=== PATIENT | male | born 1940 | race Caucasian/White ===

== ENCOUNTER 2019-08-16 15:27 | Observation (INO) | payer MEDICARE ==
[~2019-08-16] VITALS: Ht 185.4 cm; Wt 124.7 kg
[~2019-08-16 15:27] MED LIST: ASPIRIN81 M2 PO; ATENOLOL25 MG PO; JANUVIA PO; MAXZIDE1 EA PO; MUSCLE RELAXANT PO; TRIAMTERENE/HCTZ; Z.0.GLIMEPIRIDE2 MG PO; Z.0.PENICILLIN V P50 PO; [UNRECOGNIZED DRUG - CODE] PO; [UNRECOGNIZED DRUG - OTHER] PO
--- OUTSIDE RECORDS SUMMARY | 2019-08-16 15:35 | XMS REPORT | Summary of Care ---
Author Author [facility] Organization [facility] Address Unknown Phone Unavailable Care Team Providers Care Anime Designer Name Role Phone Rylan Zimmerman MD PCP Reason for Visit * Reason Comments Eye Problem Encounter Details Care Team Description Date Type Department Moni Newton MD [address] [place] [address] Eye Problem 07/24/2019 Office Visit [facility] Ophthalmology [address] [place] [address] Allergies No Known Allergiesdocumented as of this encounter (statuses as of 07/24/2019) Medications End Date Status Medication Sig Dispensed Refills Start Date Active erythromycin opth APPLY A SMALL 0 (ROMYCIN) ophthalmic AMOUNT TO THE 9 ointment LEFT EYELID BID Active tobramycin-dexamethasone 0 (TOBRADEX) 0.3-0.1 % 9 ophthalmic solution Active warfarin (COUMADIN) 7.5 TK 1 T PO QD 5 MG tablet 9 Active omeprazole (PRILOSEC) 40 TK 1 C PO QD 2 MG capsule 9 Active sulfamethoxazole-trimetho TK 1 T PO BID 1 prim (BACTRIM, SEPTRA) FOR 10 DAYS 9 400-80 MG per tablet THEN TK 1 T PO QD CONTINUOUSLY Active glimepiride (AMARYL) 2 MG TK 1 T PO QD 0 tablet WITH 9 BREAKFAST OR FIRST MAIN MEAL Active doxycycline (VIBRAMYCIN) TK 1 C PO BID 3 50 MG capsule 9 Active levothyroxine (SYNTHROID) TK 1 T PO QD 1 50 MCG tablet 9 Active torsemide (DEMADEX) 20 MG TK 1 T PO QD 0 tablet 9 Active lisinopril (PRINIVIL, Take 10 mg by 0 ZESTRIL) 10 MG tablet mouth daily. Active ezetimibe (ZETIA) 10 MG TK 1 T PO QD 1 tablet 9 Active Levocetirizine Take by 0 Dihydrochloride (XYZAL mouth. OR) Active Cholecalciferol (VITAMIN Take by 0 D3) 3000 units TABS mouth. Active Calcium Take by 0 Carb-Cholecalciferol mouth. (CALCIUM 600 + D OR) Active cycloSPORINE (RESTASIS) Place 1 Drop 60 Each 6 0.05 % ophthalmic into both 9 emulsion eyes two times daily. Active Eyelid Cleansers Apply 1 [place] 1 Bottle 6 (AVENOVA) 0.01 % SOLN topically two 9 times daily. documented as of this encounter (statuses as of 07/24/2019) Active Problems Problem Noted Date Corneal scar and opacity 07/24/2019 Dry eye syndrome of both eyes 07/24/2019 documented as of this encounter (statuses as of 07/24/2019) Social History Date Tobacco Use Types Packs/Day Years Used Never Smoker Smokeless Tobacco: Never Used Drinks/Week oz/Week Comments Alcohol Use Not Currently Alcohol Habits Answer Date Recorded How often do you have a drink containing alcohol? Never 07/24/2019 How many drinks containing alcohol do you have on Not asked a typical day when you are drinking? How often do you have six or more drinks on one Not asked occasion? Sex Assigned at Date Recorded Not on file Industry Job Start Date Occupation Not on file Not on file Not on file Travel End Travel History Travel Start No recent travel history available. documented as of this encounter Last Filed Vital Signs Not on filedocumented in this encounter Patient Instructions * Patient Instructions* Moni Newton MD - 07/24/2019 9:50 AM CDT Avenova [place] Tobradex twice a day for 1 week then once a day Restasis twice a day Restasis Patient Instructions 1. Restasis is a food and drug administration approved medication that treats th e cause of dry eyes, not just the symptoms 2. You may notice that Restasis is slightly cloudy, but it will not blur your vi efraín 3. You may experience burning from Restasis after you place it in your eye. Abou t 17% of study patients had very mild burning. The burning usually lasts a few min utes and most often goes away within a couple of weeks. 4. A small percentage of patients develop burning three to six weeks after start ing Restasis because the eye is returning to a more healthy and normal state and is regaining sensitivity. This burning will also go away after a couple of weeks and not develop again. 5. To help with the burning sensation: * Place Restasis in the refrigerator. This will not hinder the efficacy of the medication. * Place a drop of either Lotemax (if prescribed by your physician) or an artifi sammy tear approximately 2 minutes before the Restasis drop. Dosing 1. The package insert suggests using one vial per dose. Because there are 8 drop s per vial, we feel it is more cost effective to use one vial until it runs out. Once you open the vial in the morning, be careful not to touch or contaminate the top . The package insert recommends using the drop twice a day; however, your physician may prescribe the drug to be used three to four times a day. 2. Place your vial in a small glass or shotglass and stand upright in the refrig erator. 3. It usually takes at least two weeks to see an effect and it may take up to si x months to derive the maximum therapeutic benefit, so you must be patient. 4. It is important that you continue to use restasis long-term or your dry eye c ondition will return. documented in this encounter Progress Notes * Moni Newton MD - 07/24/2019 9:50 AM CDT STUDY/STUDIES: Ralph: IA from dry eye ASSESSMENT/PLAN 1. Corneal scar and opacity 2. Dry eye syndrome of both eyes - 1) Dry eye OS > OD - treated with tears and steroids - IOP high! Needs to be off steroids - taper Tobradex - plan restasis and avenova - would benefit in the future from lipoflow or other treatment ATTESTATIONS: I have reviewed the PMH, SH, FHX, ROS, MEDS, ALLERGIES and TECH NOTE, and have u pdated the computerized patient record appropriately. The risks, benefits, and alternatives of treatment were discussed with the patie nt (& family, if present). All questions regarding diagnosis and treatment were answered to the patient's satisfaction. documented in this encounter Plan of Treatment Health Maintenance Due Date Last Done Comments MEDICARE AWV 1940 TETANUS SHOT (ADULT) 1955 FALL SCREEN 01/26/2004 PNEUMOVAX >=65 (PPSV23) 01/26/2004 PREVNAR >=65 (PCV13) 01/26/2004 FLU VACCINE > 6 MONTHS 05/16/2019 documented as of this encounter Procedures Comments Procedure Name Priority Date/Time Associated Diagnosis CORNEAL TOPOGRAPHY - OU - Routine 07/24/2019 Corneal scar and opacity BOTH EYES 11:50 AM CDT documented in this encounter Results * CORNEAL TOPOGRAPHY - OU - BOTH EYES (07/24/2019 11:50 AM CDT) Specimen Narrative Performed At Right Eye Findings include irregular astigmatism. Left Eye Findings include irregular astigmatism. Notes Dry eye OS > OD documented in this encounter Visit Diagnoses Diagnosis Corneal scar and opacity - Primary Corneal opacity, unspecified Dry eye syndrome of both eyes documented in this encounter Insurance Type Payer Benefit Subscriber ID Effective Phone Address Plan / Dates Group Medicare [employer] MEDICARE xxxxxxxx 2014-P [address] PPO - resent [id number] [place] [address] documented as of this encounter
--- OUTSIDE RECORDS SUMMARY | 2019-08-16 15:35 | XMS REPORT ---
[facility] Address Unknown Phone Unavailable Care Team Providers Care Sales Department Supervisor Name Role Phone Sarbjit DANIELSON Unavailable Unavailable Payers Payer Name Policy Type Policy Number Effective Date Expiration Date Problems This patient has no known problems. Allergies, Adverse Reactions, Alerts Allergy Name Allergy Type Status Severity Reaction(s) Onset Date Inactive Date Treating Clinician Comments No Known Contrast Allergies DA Active U 2006-09-15 00:00:00 No Known Drug Allergies DA Active U 2006-09-15 00:00:00 No Known Food Allergies DA Active U 2006-09-15 00:00:00 No Known Other Allergies DA Active U 2006-09-15 00:00:00 No Known Drug Intolerances DA Active U 2002-11-19 00:00:00 Medications This patient has no known medications. Results Test Description Test Time Test Comments Text Results Atomic Results Result Comments CHEST 2 VIEWS [place] [address] Patient Name: GERRI GREGORIO MR #: [id number] : 1940 Age/Sex: 77/M Req #: [id number] Adm Physician: Ordered by: BRYAN ROOT Report #: [id number] Location: ER Room/Bed: Procedure: [id number] DX/CHEST 2 VIEWS Exam Date: 07/11/17 Exam Time: 1640 REPORT STATUS: Signed PROCEDURE: Frontal and lateral views of the chest. COMPARISON: Patients [facility], DX, CHEST SINGLE (PORTABLE), 07/02/2013, 7:00. INDICATIONS: COUGH, ANEMIA FINDINGS: Lines/tubes: None. Lungs: The lungs are well inflated. Stable left lower lung 6-7 mm calcified granuloma. There is no evidence of pneumonia or pulmonary edema. Pleura: There is no pleural effusion or pneumothorax. Heart and mediastinum: Cardiac silhouette is unremarkable. Pulmonary vasculature is normal. Tortuous aorta. Bones: No acute bony abnormality. IMPRESSION: 1. No acute cardiopulmonary abnormalities. Fei Avalos M.D. Dictated by: Fei Avalos M.D. on 07/11/2017 at 17:06 Electronically approved by: Fei Avalos M.D. on 07/11/2017 at 17:06 Dictated By: FEI AVALOS MD [id number] Transcribed By: TEOFILO on 07/11/17 1706 COPY TO: BRYAN ROOT
--- OUTSIDE RECORDS SUMMARY | 2019-08-16 15:35 | XMS REPORT | Summary of Care ---
Author Author [facility] Organization [facility] Address Unknown Phone Unavailable Care Team Providers Care Electrical Project Engineer Name Role Phone Rylan Zimmerman MD PCP Reason for Visit * Reason Comments Blurred Vision Encounter Details Care Team Description Date Type Department Moni Newton MD [address] [place] [address] Blurred Vision 08/16/2019 Office Visit [facility] Ophthalmology [address] [place] [address] Allergies No Known Allergiesdocumented as of this encounter (statuses as of 08/16/2019) Medications End Date Status Medication Sig Dispensed [...] times daily. Active Eyelid Cleansers Apply 1 [place] 1 Bottle 6 (AVENOVA) 0.01 % SOLN topically two 9 times daily. documented as of this encounter (statuses as of 08/16/2019) Active Problems Problem Noted Date Corneal scar and opacity 07/24/2019 Dry eye syndrome of both eyes 07/24/2019 documented as of this encounter (statuses as of 08/16/2019) Social History Date Tobacco Use Types Packs/Day [...] Signs Not on filedocumented in this encounter Progress Notes * Moni Newton MD - 08/16/2019 1:30 PM CDT STUDY/STUDIES: Ralph: IA from dry eye ASSESSMENT/PLAN 1. Subconjunctival hematoma, bilateral - 1) Spont ecchymosis OD with bilateral YING - on Doxy with Warfarin - discussed with PCP: plan to check INR today - hold Doxy for now 2) Dry eye OS > OD - treated with tears and steroids - IOP better off steroids - CPM restasis and avenova - would benefit in [...] MONTHS 05/16/2019 documented as of this encounter Results Not on filedocumented in this encounter Visit Diagnoses Diagnosis Subconjunctival hematoma, bilateral - Primary documented in this encounter Insurance Type Payer Benefit Subscriber ID Effective Phone Address Plan / Dates Group Medicare [employer] MEDICARE xxxxxxxx 2014-P [address] PPO - resent [id number] [place] [address] documented as of this encounter
[2019-08-16] MEDS ORDERED: PHYTONADIONE 10 MG/ML AMP SQ ONE (15:45)
[2019-08-16 16:19] LABS: INR 6.31; PROTHROMBIN TIME 56.5 seconds (11.9-14.5)
--- NOTE | 2019-08-16 16:20 | NUR ---
dr patterson informed of critical pt/inr
[2019-08-16] MEDS ORDERED: RESTASIS1 EACH OU (16:53)
[2019-08-16] MEDS ORDERED: WARFARIN SODIU7.5 MG PO (16:53)
[2019-08-16] MEDS ORDERED: TOBRADEX ST EYE5 ML OU (16:53)
[2019-08-16 22:00] VITALS: BP 109/71
[2019-08-16 22:32] VITALS: BP 109/71
[2019-08-17] VITALS (7 sets, daily range): BP systolic 97–119; BP diastolic 57–74
--- NOTE | 2019-08-17 02:03 | History and Physical ---
HISTORY OF PRESENTING ILLNESS: The patient is an 79-year-old gentleman, who woke up in the morning with both eyes being bloody and the patient went to his eye doctor and was told to come back to his PCP to do PT and INR, which was found to be elevated at 8 and the patient was sent to the emergency room for further evaluation. PAST MEDICAL HISTORY: History of diabetes mellitus, history of chronic renal failure, history of hyperlipidemia, history of hypertension, history of benign prostatic hypertrophy, history of diabetes mellitus, history of chronic kidney disease, history of DVT in the left leg, and also hypothyroidism. The patient's additional history includes diabetes with renal manifestations. ALLERGIES: NKDA. PAST SURGICAL HISTORY: History of tonsillectomy, adenoidectomy, appendectomy, inguinal hernia repair, and right knee surgery. FAMILY HISTORY: Father is to emphysema. Family history unknown. Brother, hypertension. SOCIAL HISTORY: No EtOH and no IV drug abuse. MEDICATIONS: The patient takes include warfarin sodium 7.5 mg. The patient takes lisinopril 10 mg daily, glimepiride 2 mg daily, Synthroid 50 mg daily, Zetia 10 mg daily, and torsemide 20 mg daily. The patient also takes Januvia and a muscle relaxant. The patient also takes Restasis for dry eye syndrome. PHYSICAL EXAMINATION: VITAL SIGNS: Temperature is 98.5, pulse of 83, respirations of 20, blood pressure is 107/63, and pulse oximetry of 99%. HEENT: The patient has bilateral eye with raccoon eye with ecchymosis around the eye on bilateral orbits. CVS: S1 and S2 normal. Regular rate and rhythm. ABDOMEN: Nontender and nondistended. EXTREMITIES: No clubbing, no cyanosis, and no edema. LABORATORY VALUES: The patient's PT/INR . Rest of the labs are pending at this time. ASSESSMENT: Mr. Jurgen Cooper with a hypercoagulable state secondary to warfarin poisoning or overdose. PLAN: Vitamin K has been given. We will give FFP if needed. The patient's CT scan of the eye is pending at this time. We will continue to monitor the patient and continue checking his PT/INR. Further recommendation per clinical course. Additional comorbidities includes DVT, diabetes mellitus, hypothyroidism, hypertension, hyperlipidemia, and reflux esophagitis. For further information, look into the chart. MD SUBHA Ojeda/MODL /[id number]
[2019-08-17 05:25] LABS: BASOPHILS % 0.7 % (0.0-1.0); EOSINOPHILS # (AUTO) 0.2 (0.0-0.4); EOSINOPHILS % 3.2 % (0.0-6.0); HEMATOCRIT 35.8 % (38.2-49.6); HEMOGLOBIN 12.2 g/dL (14.0-18.0); LYMPHOCYTES # (AUTO) 1.8 (1.0-3.2); LYMPHOCYTES % 32.7 % (18.0-39.1); MEAN CORPUSCULAR HEMOGLOBIN 30.3 pg (28-32); MEAN CORPUSCULAR HGB CONC 34.1 g/dL (31-35); MEAN CORPUSCULAR VOLUME 88.8 fL (81-99); MONOCYTES # (AUTO) 0.7 (0.2-0.8); MONOCYTES % 13.2 % (4.4-11.3); NEUTROPHILS # (AUTO) 2.8 (2.1-6.9); NEUTROPHILS % 49.7 % (38.7-80.0); PLATELET COUNT 139 x10e3/uL (140-360); RED BLOOD COUNT 4.03 x10e6/uL (4.3-5.7); RED CELL DISTRIBUTION WIDTH 12.6 % (11.7-14.4)
[2019-08-17 05:35] LABS: PARTIAL THROMBOPLASTIN TIME 69.4 seconds (23.8-35.5)
[2019-08-17 05:42] LABS: ANION GAP 11.8 mmol/L (8-16); CALCIUM 9.4 mg/dL (8.4-10.2); CREATININE, SERUM 1.78 mg/dL (0.72-1.25); INR 5.95; POTASSIUM 3.8 mmol/L (3.5-5.1)
[2019-08-17] MEDS ORDERED: LEVOTHYROXINE50 MCG PO (06:03)
[2019-08-17] MEDS ORDERED: OMEPRAZOLE40 MG PO (06:05)
[2019-08-17] MEDS ORDERED: BACTRIM 400-801 EACH PO (06:06)
[2019-08-17] MEDS ORDERED: LISINOPRIL10 MG PO (06:07)
[2019-08-17] MEDS ORDERED: ZETIA10 MG PO (06:09)
[2019-08-17] MEDS ORDERED: TORSEMIDE10 MG PO (06:10)
[2019-08-17] MEDS ORDERED: DOXYCYCLINE HYC50 MG PO (06:13)
[2019-08-17] MEDS ORDERED: XYZAL5 MG (06:21)
[2019-08-17] MEDS ORDERED: CALCIUM600 MG (06:23)
[2019-08-17] MEDS ORDERED: VITAMIN D400 UNIT PO (06:23)
[2019-08-17] MEDS ORDERED: PHYTONADIONE 10 MG/ML AMP SQ ONE (07:15)
[2019-08-17] MEDS ORDERED: LISINOPRIL 10 MG TAB PO SCH (09:00)
[2019-08-17] MEDS ORDERED: LEVOTHYROXINE SODIUM 50 MCG TAB PO SCH (09:00)
[2019-08-17] MEDS ORDERED: EZETIMIBE 10 MG TAB PO SCH (09:00)
[2019-08-17] MEDS ORDERED: GLIMEPIRIDE 2 MG TAB PO SCH (09:00)
[2019-08-17] MEDS ORDERED: TORSEMIDE 10 MG TAB PO SCH (09:00)
[2019-08-17] MEDS ORDERED: PANTOPRAZOLE SOD 40 MG TABEC PO SCH (09:00)
--- NOTE | 2019-08-17 10:09 | Progress Note ---
DATE: SUBJECTIVE: The patient came in with Coumadin toxicity. The patient is admitted to the hospital, was given vitamin K, however, his INR is still at 5.95, yesterday was 6.31. The patient is currently asymptomatic except for bleeds in subconjunctival and also hemorrhages and ecchymosis in the eye. The patient is feeling better. Eyesight is distorted, but that is secondary to cataract operation the patient had. Currently, no chest pain. No shortness of breath. No nausea. No vomiting. No diarrhea. OBJECTIVE: VITAL SIGNS: Temperature is 96.7, pulse of 75, respirations of 16, blood pressure is 108/59, pulse oximetry of 98%. HEENT: Normocephalic, atraumatic. The patient has subconjunctival hemorrhages and also orbital ecchymosis. CVS: S1 and S2 normal. Regular rate and rhythm. ABDOMEN: Nontender, nondistended. EXTREMITIES: Positive for edema. LABORATORY VALUES: White count is 5.6, hemoglobin of 12.2, hematocrit 35.8. Chemistries; sodium 131, BUN of 39, creatinine of 1.78, glucose of 148. ASSESSMENT: An 79-year-old gentleman with: 1. Coumadin toxicity. Plan would be to give another 20 mg of vitamin K to reduce INR. 2. Acute kidney injury with chronic kidney disease. We will continue monitoring. The patient's creatinine is 37%. 3. History of deep venous thrombosis. The patient will need to resume warfarin once it is down. 4. The patient's other comorbid birds include hyperlipidemia, diabetes mellitus, hypothyroidism, hypertension. Continue all current medications. Further recommendation per clinical course. We will continue to monitor the patient. MD ISAIAH OjedaJ/MODL /[id number]
[2019-08-17 12:56] LABS: INR 4.16
[2019-08-17] MEDS ORDERED: LORATADINE 10 MG TAB PO SCH (17:00)
[2019-08-17 18:12] LABS: INR 2.64; PROTHROMBIN TIME 28.9 seconds (11.9-14.5)
--- NOTE | 2019-08-17 18:45 | NUR ---
patient alert and oriented, discharge instructions given at this time, patient and verbalized understanding. IV discontinued, catheter in tact and pressure dressing applied. patient to be wheeled out to personal auto for to drive home.
== END 2019-08-17 18:57 | disposition home or self-care (01) ==
LOC: ER 15:27 → ERHOLD 16:26 → IMCU 21:52
PROVIDERS: ADMIT Family Medicine; ATTEND Family Medicine
DX: D68.69 Other thrombophilia (principal); T45.515A Adverse effect of anticoagulants, initial encounter; E11.22 Type 2 diabetes mellitus with diabetic chronic kidney disease; I12.9 Hypertensive chronic kidney disease with stage 1 through stage 4 chronic kidney disease, or unspecified chronic kidney disease; N18.9 Chronic kidney disease, unspecified; N17.9 Acute kidney failure, unspecified; E03.9 Hypothyroidism, unspecified; N40.0 Benign prostatic hyperplasia without lower urinary tract symptoms; Z86.718 Personal history of other venous thrombosis and embolism; Z79.01 Long term (current) use of anticoagulants; E78.5 Hyperlipidemia, unspecified
CPT/HCPCS: 36415 ×2; 80048; 82948; 85025; 85610 ×2; 85730; 99284; G0378 ×2; J3430 ×2; S0164

== ENCOUNTER → 2021-05-04 | Outpatient (CLI) | payer MEDICARE ==
[~2021-05-04] MED LIST changes: +BACTRIM 400-801 EACH PO; +CALCIUM600 MG; +DOXYCYCLINE HYC50 MG PO; +LEVOTHYROXINE50 MCG PO; +LISINOPRIL10 MG PO; +OMEPRAZOLE40 MG PO; +RESTASIS1 EACH OU; +TOBRADEX ST EYE5 ML OU; +TORSEMIDE10 MG PO; +VITAMIN D400 UNIT PO; +WARFARIN SODIU7.5 MG PO; +XYZAL5 MG; +ZETIA10 MG PO
[2021-05-04 09:26] LABS: CREATININE, SERUM 1.64 mg/dL (0.72-1.25)
== END ==
LOC: MRI 08:40
PROVIDERS: ATTEND Family Medicine
DX: E80.6 Other disorders of bilirubin metabolism (principal); K85.90 Acute pancreatitis without necrosis or infection, unspecified
CPT/HCPCS: 36415; 74181; 82565; 84520

== ENCOUNTER → 2022-05-20 | Outpatient (CLI) | payer MEDICARE | LOC: US 12:54 | PROVIDERS: ATTEND Family Medicine | DX: N50.89 Other specified disorders of the male genital organs (principal) | CPT/HCPCS: 76870; 93976 ==

== ENCOUNTER 2024-08-12 10:51 | Inpatient (IN) | payer MEDICARE ==
[~2024-08-12] VITALS: Ht 185.4 cm; Wt 124.7 kg
[~2024-08-12 10:51] MED LIST changes: +METFORMIN HCL850 MG PO; +PLAVIX75 MG PO
[2024-08-12] MEDS ORDERED: SODIUM CHLORIDE FLUSH 10 ML SYR INJ PRN (11:15)
[2024-08-12 12:15] LABS: BASOPHILS % 0.4 % (0.0-1.0); EOSINOPHILS # (AUTO) 0.1 (0.0-0.4); EOSINOPHILS % 1.8 % (0.0-6.0); HEMATOCRIT 38.9 % (38.2-49.6); HEMOGLOBIN 12.4 g/dL (14.0-18.0); LYMPHOCYTES # (AUTO) 1.2 (1.0-3.2); LYMPHOCYTES % 16.8 % (18.0-39.1); MEAN CORPUSCULAR HEMOGLOBIN 29.9 pg (28-32); MEAN CORPUSCULAR HGB CONC 31.9 g/dL (31-35); MEAN CORPUSCULAR VOLUME 93.7 fL (81-99); MONOCYTES # (AUTO) 1.2 (0.2-0.8); MONOCYTES % 16.5 % (4.4-11.3); NEUTROPHILS # (AUTO) 4.5 (2.1-6.9); NEUTROPHILS % 64.2 % (38.7-80.0); PLATELET COUNT 104 x10e3/uL (140-360); RED BLOOD COUNT 4.15 x10e6/uL (4.3-5.7); RED CELL DISTRIBUTION WIDTH 14.6 % (11.7-14.4); WHITE BLOOD COUNT 7.04 x10e3/uL (4.8-10.8)
[2024-08-12 12:30] LABS: ALANINE AMINOTRANSFERASE 16 IU/L (0-55); ALBUMIN 3.3 g/dL (3.5-5.0); ALBUMIN/GLOBULIN RATIO 0.9 (0.8-2.0); ALKALINE PHOSPHATASE 157 IU/L (40-150); ANION GAP 14.1 mmol/L (8-16); BILIRUBIN,TOTAL 1.2 mg/dL (0.2-1.2); BLOOD UREA NITROGEN 28 mg/dL (7-26); BUN/CREATININE RATIO 18 (6-25); CALCIUM 9.6 mg/dL (8.4-10.2); CARBON DIOXIDE 22 mmol/L (22-29); CHLORIDE 107 mmol/L (98-107); CREATINE KINASE 38 IU/L (30-200); CREATININE, SERUM 1.58 mg/dL (0.72-1.25); EST GLOMERULAR FILTRATION RATE 43 ML/MIN (>=60); GLUCOSE 149 mg/dL (74-118); POTASSIUM 4.1 mmol/L (3.5-5.1); SODIUM 139 mmol/L (136-145); TOTAL PROTEIN 6.9 g/dL (6.5-8.1)
[2024-08-12 12:41] LABS: TROPONIN I < 0.05 ng/mL (0.0-0.40)
[2024-08-12 16:52] VITALS: TEMP 98.8
[2024-08-12] MEDS ORDERED: ONDANSETRON HCL INJ 2MG/ML 2ML 2 MG/ML VIAL ONE (17:08)
[2024-08-12] MEDS: Morphine 4mg INJECTION 4 MG/ML INJ IV PRN (17:10)
[2024-08-12] MEDS ORDERED: DIPHENHYDRAMINE HCL 25 MG CAP PO STA (17:46)
[2024-08-12] MEDS ORDERED: DIPHENHYDRAMINE HCL INJ 50 MG/ML VIAL ONE (17:52)
[2024-08-12] MEDS: PREDNISONE 20 MG TAB PO STA (17:56)
[2024-08-12] MEDS: ONDANSETRON HCL INJ 2MG/ML 2ML 2 MG/ML VIAL IV STA (17:56)
[2024-08-12] MEDS: DIPHENHYDRAMINE HCL INJ 50 MG/ML VIAL IV ONE (18:10)
[2024-08-12 19:06] VITALS: PULSE 86; RESP 18
[2024-08-12] MEDS ORDERED: DEXTROSE 50% SYRINGE 50 ML IV PRN (19:15)
[2024-08-12 20:00] VITALS: BP 125/65; PULSE 81; RESP 18; TEMP 98.3; O2SAT 100
[2024-08-12] MEDS: INSULIN LISPRO 100 UNIT/1 ML 3ML VIAL SQ SCH (22:42)
[2024-08-12] MEDS: FUROSEMIDE INJ 10 MG/ML 4 ML VIAL IV SCH (22:47)
[2024-08-13] VITALS: BP 117/66; PULSE 75; RESP 18; TEMP 97.6; O2SAT 100
[2024-08-13 04:00] VITALS: BP 105/54; PULSE 68; RESP 18; TEMP 97.8; O2SAT 98
[2024-08-13] MEDS: LEVOTHYROXINE SODIUM 50 MCG TAB PO SCH (05:32)
[2024-08-13 06:09] LABS: HEMOGLOBIN 10.6 g/dL (14.0-18.0); LYMPHOCYTES # (AUTO) 0.6 (1.0-3.2); LYMPHOCYTES % 15.3 % (18.0-39.1); MEAN CORPUSCULAR HEMOGLOBIN 29.9 pg (28-32); MEAN CORPUSCULAR HGB CONC 32.1 g/dL (31-35); MEAN CORPUSCULAR VOLUME 93.2 fL (81-99); MONOCYTES # (AUTO) 0.3 (0.2-0.8); MONOCYTES % 8.9 % (4.4-11.3); NEUTROPHILS # (AUTO) 2.9 (2.1-6.9); NEUTROPHILS % 75.3 % (38.7-80.0); PLATELET COUNT 70 x10e3/uL (140-360); RED BLOOD COUNT 3.54 x10e6/uL (4.3-5.7); RED CELL DISTRIBUTION WIDTH 14.2 % (11.7-14.4)
[2024-08-13 06:36] LABS: ALBUMIN 2.5 g/dL (3.5-5.0); ALBUMIN/GLOBULIN RATIO 0.8 (0.8-2.0); ANION GAP 12.8 mmol/L (8-16); BILIRUBIN,TOTAL 1.4 mg/dL (0.2-1.2); CALCIUM 8.8 mg/dL (8.4-10.2); CREATININE, SERUM 1.51 mg/dL (0.72-1.25); POTASSIUM 3.8 mmol/L (3.5-5.1); TOTAL PROTEIN 5.7 g/dL (6.5-8.1)
[2024-08-13 07:06] LABS: TROPONIN I 0.035 ng/mL (0-0.300)
[2024-08-13] MEDS ORDERED: METFORMIN HCL 500 MG TAB PO SCH (08:00)
[2024-08-13] MEDS ORDERED: LISINOPRIL 10 MG TAB PO SCH (09:00)
[2024-08-13 09:38] VITALS: BP 115/62; PULSE 70; RESP 19; TEMP 97.9; O2SAT 100
[2024-08-13] MEDS: EZETIMIBE 10 MG TAB PO SCH (11:58)
[2024-08-13] MEDS: GLIMEPIRIDE 2 MG TAB PO SCH (11:59)
[2024-08-13] MEDS: PANTOPRAZOLE SOD 40 MG TABEC PO SCH (11:59)
[2024-08-13 12:17] VITALS: BP 124/73; PULSE 72; RESP 20; TEMP 98; O2SAT 100
[2024-08-13 16:05] VITALS: BP 126/56; PULSE 69; RESP 20; TEMP 98.6; O2SAT 100
[2024-08-13 18:32] LABS: TROPONIN I 0.026 ng/mL (0-0.300)
[2024-08-13 20:00] VITALS: BP 131/57; PULSE 67; RESP 18; TEMP 98; O2SAT 100
[2024-08-14] VITALS (9 sets, daily range): BP systolic 117–148; BP diastolic 66–70; PULSE 67–100; RESP 17–20; TEMP 97.6–98.7; O2SAT 10–100
[2024-08-14 06:50] LABS: ALBUMIN 2.6 g/dL (3.5-5.0); ALBUMIN/GLOBULIN RATIO 0.8 (0.8-2.0); ANION GAP 13.4 mmol/L (8-16); BILIRUBIN,TOTAL 1.2 mg/dL (0.2-1.2); CALCIUM 8.8 mg/dL (8.4-10.2); CREATININE, SERUM 1.49 mg/dL (0.72-1.25); TOTAL PROTEIN 5.7 g/dL (6.5-8.1)
[2024-08-14 06:57] LABS: POTASSIUM 3.4 mmol/L (3.5-5.1)
[2024-08-14] MEDS: POTASSIUM CHLORIDE 20MEQ/100ML 200 ML IV ONE (13:02)
[2024-08-14] MEDS: MUPIROCIN 2% OINT 22 GM TUBE NS SCH (17:29)
[2024-08-14 19:20] LABS: CREATININE,URINE RANDOM 19.34 mg/dL (63-166)
[2024-08-14 19:21] LABS: TOTAL PROTEIN, URINE < 6.8 mg/dL (1-14)
[2024-08-15] VITALS (10 sets, daily range): BP systolic 109–138; BP diastolic 55–69; PULSE 80–93; RESP 17–22; TEMP 97.4–98.9; O2SAT 97–100
[2024-08-15] MEDS: ACETAMINOPHEN/CODEINE 300MG - 30MG TAB PO PRN (03:37)
[2024-08-15 06:27] LABS: ALBUMIN 2.5 g/dL (3.5-5.0); ALBUMIN/GLOBULIN RATIO 0.8 (0.8-2.0); ANION GAP 13.6 mmol/L (8-16); BILIRUBIN,TOTAL 1.9 mg/dL (0.2-1.2); CALCIUM 8.6 mg/dL (8.4-10.2); CREATININE, SERUM 1.53 mg/dL (0.72-1.25); MAGNESIUM 1.8 MG/DL (1.3-2.1); POTASSIUM 3.6 mmol/L (3.5-5.1); TOTAL PROTEIN 5.8 g/dL (6.5-8.1)
[2024-08-15] MEDS: BISACODYL 5 MG TAB EC PO PRN (16:26)
[2024-08-15] MEDS: BUMETANIDE 1 MG TAB PO SCH (16:26)
[2024-08-16 09:00] VITALS: BP 118/62; PULSE 77; RESP 17; TEMP 98.4; O2SAT 98
[2024-08-16 09:02] VITALS: BP 118/62; PULSE 77; RESP 19; TEMP 98.4; O2SAT 98
[2024-08-16 12:17] VITALS: BP 145/69; PULSE 96; RESP 19; TEMP 98; O2SAT 96
[2024-08-16 16:43] VITALS: BP 124/62; PULSE 55; RESP 20; TEMP 98; O2SAT 95
[2024-08-16 20:00] VITALS: BP 106/61; PULSE 98; RESP 18; TEMP 98.3; O2SAT 97
[2024-08-16] MEDS ORDERED: PHE/SHARK LIVER OIL/COCOA BUT 1 EA SUPP RC SCH (21:00)
[2024-08-17] VITALS (9 sets, daily range): BP systolic 112–137; BP diastolic 49–67; PULSE 72–83; RESP 18–20; TEMP 97.1–98.3; O2SAT 97–100
[2024-08-17 06:31] LABS: BASOPHILS % 0.2 % (0.0-1.0); EOSINOPHILS # (AUTO) 0.1 (0.0-0.4); EOSINOPHILS % 0.8 % (0.0-6.0); HEMATOCRIT 35.5 % (38.2-49.6); HEMOGLOBIN 11.6 g/dL (14.0-18.0); LYMPHOCYTES # (AUTO) 1.3 (1.0-3.2); LYMPHOCYTES % 14.7 % (18.0-39.1); MEAN CORPUSCULAR HGB CONC 32.7 g/dL (31-35); MEAN CORPUSCULAR VOLUME 91.7 fL (81-99); MONOCYTES # (AUTO) 1.3 (0.2-0.8); MONOCYTES % 15.4 % (4.4-11.3); NEUTROPHILS # (AUTO) 5.9 (2.1-6.9); NEUTROPHILS % 68.7 % (38.7-80.0); PLATELET COUNT 84 x10e3/uL (140-360); RED BLOOD COUNT 3.87 x10e6/uL (4.3-5.7); WHITE BLOOD COUNT 8.53 x10e3/uL (4.8-10.8)
[2024-08-17 07:22] LABS: ALBUMIN 2.5 g/dL (3.5-5.0); ALBUMIN/GLOBULIN RATIO 0.7 (0.8-2.0); ANION GAP 14.4 mmol/L (8-16); BILIRUBIN,TOTAL 1.6 mg/dL (0.2-1.2); CALCIUM 8.8 mg/dL (8.4-10.2); CREATININE, SERUM 1.54 mg/dL (0.72-1.25); TOTAL PROTEIN 6.3 g/dL (6.5-8.1)
[2024-08-17 07:31] LABS: POTASSIUM 3.4 mmol/L (3.5-5.1)
[2024-08-17] MEDS: PHE/SHARK LIVER OIL/COCOA BUT 1 EA SUPP RC SCH (11:08)
[2024-08-18] VITALS (7 sets, daily range): BP systolic 117–135; BP diastolic 55–61; PULSE 70–79; RESP 16–20; TEMP 98.1–98.4; O2SAT 97–100
[2024-08-19 03:00] VITALS: BP 136/63; PULSE 74; RESP 18; TEMP 97.8; O2SAT 100
[2024-08-19 08:09] VITALS: BP 137/63; PULSE 70; RESP 17; TEMP 98.9; O2SAT 97
[2024-08-19 08:39] VITALS: BP 137/63; PULSE 70; RESP 17; TEMP 98.9; O2SAT 97
[2024-08-19 12:26] VITALS: BP 157/91; PULSE 82; RESP 21; TEMP 98.2; O2SAT 100
[2024-08-19 16:33] VITALS: BP 143/66; PULSE 84; RESP 20; TEMP 98.3; O2SAT 100
[2024-08-19 20:00] VITALS: BP 125/66; PULSE 93; RESP 18; TEMP 97.3; O2SAT 97
[2024-08-20] VITALS (7 sets, daily range): BP systolic 108–142; BP diastolic 52–89; PULSE 70–84; RESP 18–20; TEMP 98–98.5; O2SAT 95–100
[2024-08-20 12:00] LABS: ALBUMIN 2.3 g/dL (3.5-5.0); ALBUMIN/GLOBULIN RATIO 0.7 (0.8-2.0); ANION GAP 11.6 mmol/L (8-16); CALCIUM 8.6 mg/dL (8.4-10.2); CREATININE, SERUM 1.4 mg/dL (0.72-1.25); POTASSIUM 3.6 mmol/L (3.5-5.1); TOTAL PROTEIN 5.5 g/dL (6.5-8.1)
[2024-08-20] MEDS: PHE/SHARK LIVER OIL/COCOA BUT 1 EA SUPP RC PRN (15:04)
[2024-08-20] MEDS: BUMETANIDE 1 MG TAB PO SCH (16:18)
[2024-08-21] VITALS (8 sets, daily range): BP systolic 108–126; BP diastolic 57–61; PULSE 68–83; RESP 18; TEMP 97.4–98.6; O2SAT 99–100
[2024-08-21 10:10] LABS: ANION GAP 10.4 mmol/L (8-16); CALCIUM 8.6 mg/dL (8.4-10.2); CREATININE, SERUM 1.38 mg/dL (0.72-1.25)
[2024-08-21 10:14] LABS: POTASSIUM 3.4 mmol/L (3.5-5.1)
[2024-08-22] VITALS: BP 134/55; PULSE 65; RESP 18; TEMP 98.7; O2SAT 99
[2024-08-22 04:00] VITALS: BP 125/55; PULSE 68; RESP 18; TEMP 98.4; O2SAT 100
[2024-08-22 07:46] VITALS: BP 123/51; PULSE 71; RESP 18; TEMP 97.8; O2SAT 100
[2024-08-22 08:45] VITALS: BP 123/51; PULSE 71; RESP 18; TEMP 97.8; O2SAT 100
[2024-08-22 11:34] VITALS: BP 128/63; PULSE 64; RESP 18; TEMP 97.3; O2SAT 98
[2024-08-22 15:08] VITALS: BP 138/79; PULSE 84; RESP 16; TEMP 98.5; O2SAT 96
[2024-08-22] MEDS: ACETAMINOPHEN/CODEINE 300MG - 30MG TAB PO PRN (16:05)
== END 2024-08-22 19:02 | DRG 603 ==
LOC: ER 10:58 → ERHOLD 11:08 → MED/SURG2 19:56
PROVIDERS: ADMIT Family Medicine; ATTEND Family Medicine
PROC: 02HV33Z Insertion of Infusion Device into Superior Vena Cava, Percutaneous Approach (ICD-10-PCS; principal; 2024-08-13)
PROC: B548ZZA Ultrasonography of Superior Vena Cava, Guidance (ICD-10-PCS; 2024-08-13)
DX: L03.116 Cellulitis of left lower limb (principal); L97.819 Non-pressure chronic ulcer of other part of right lower leg with unspecified severity; L97.829 Non-pressure chronic ulcer of other part of left lower leg with unspecified severity; N17.9 Acute kidney failure, unspecified; I83.228 Varicose veins of left lower extremity with both ulcer of other part of lower extremity and inflammation; I83.218 Varicose veins of right lower extremity with both ulcer of other part of lower extremity and inflammation; I13.0 Hypertensive heart and chronic kidney disease with heart failure and stage 1 through stage 4 chronic kidney disease, or unspecified chronic kidney disease; L03.115 Cellulitis of right lower limb; N18.32 Chronic kidney disease, stage 3b; I50.9 Heart failure, unspecified; I89.0 Lymphedema, not elsewhere classified; E11.22 Type 2 diabetes mellitus with diabetic chronic kidney disease; E11.65 Type 2 diabetes mellitus with hyperglycemia; Z79.84 Long term (current) use of oral hypoglycemic drugs; L97.529 Non-pressure chronic ulcer of other part of left foot with unspecified severity; L97.519 Non-pressure chronic ulcer of other part of right foot with unspecified severity; N31.8 Other neuromuscular dysfunction of bladder; N40.1 Benign prostatic hyperplasia with lower urinary tract symptoms; Z71.3 Dietary counseling and surveillance; Z68.36 Body mass index [BMI] 36.0-36.9, adult; E03.9 Hypothyroidism, unspecified; R39.198 Other difficulties with micturition; I35.0 Nonrheumatic aortic (valve) stenosis; J44.9 Chronic obstructive pulmonary disease, unspecified; K21.9 Gastro-esophageal reflux disease without esophagitis; H54.8 Legal blindness, as defined in USA; R53.1 Weakness; R53.81 Other malaise; Z11.52 Encounter for screening for COVID-19; Z86.718 Personal history of other venous thrombosis and embolism; Z86.711 Personal history of pulmonary embolism; Z79.02 Long term (current) use of antithrombotics/antiplatelets; Z79.899 Other long term (current) drug therapy
CPT/HCPCS: 36415; 36569; 71045; 76770; 80048; 80053; 82550; 82570; 82948; 83690; 83735; 83880; 84156; 84484; 85025; 93005; 93306; 99252; 99284; J1200; J1940; J2270; J2405; J2543; J3480; J7512; U0002